=== PATIENT | female | born 1935 | race Caucasian/White ===

== ENCOUNTER → 2020-05-16 | Outpatient (CLI) | payer OTHER | LOC: US 14:30 | PROVIDERS: Internal Medicine Nephrology | DX: N18.9 Chronic kidney disease, unspecified (principal); N27.1 Small kidney, bilateral; N28.1 Cyst of kidney, acquired | CPT/HCPCS: 36415; 80053; 81001; 82043; 82570; 84156 ==

== ENCOUNTER → 2020-08-03 | Outpatient (CLI) | payer OTHER | LOC: MRI 08-01 13:30 → EXRD 08-01 15:00 | DX: M25.511 Pain in right shoulder (principal); Z78.0 Asymptomatic menopausal state; M75.101 Unspecified rotator cuff tear or rupture of right shoulder, not specified as traumatic; M85.88 Other specified disorders of bone density and structure, other site | CPT/HCPCS: 73221; 77080 ==

== ENCOUNTER → 2020-09-07 | Outpatient (CLI) | payer OTHER ==
[2020-09-08 11:12] LABS: CREATININE, URINE 50.1 mg/dL (Not Estab.)
== END ==
LOC: LAB 12:36
PROVIDERS: Internal Medicine Nephrology
DX: N18.9 Chronic kidney disease, unspecified (principal)
CPT/HCPCS: 36415; 80053; 81001; 82043; 82570; 84156

== ENCOUNTER → 2021-03-28 | Outpatient (CLI) | payer OTHER | LOC: EXRD 14:19 | DX: U07.1 COVID-19 (principal); R91.8 Other nonspecific abnormal finding of lung field | CPT/HCPCS: 71046 ==

== ENCOUNTER 2021-04-02 11:46 | Inpatient (IN) | payer OTHER ==
[~2021-04-02] VITALS: Ht 172.7 cm; Wt 61.3 kg
[2021-04-02 12:25] LABS: HEMOGLOBIN 13.1 gm/dl (12.3-15.3); RED BLOOD COUNT 4.46 M/UL (4.00-5.10); WHITE BLOOD COUNT 9.7 K/UL (4.5-11.0)
[2021-04-02 12:50] LABS: BUN/CREATININE RATIO 22 (0-10)
[2021-04-02] MEDS ORDERED: GABAPENTIN100 MG PO (16:31)
[2021-04-02] MEDS ORDERED: LISINOPRIL2.5 MG PO (16:31)
[2021-04-02] MEDS ORDERED: METOPROLOL TART25 MG PO (16:31)
[2021-04-02] MEDS ORDERED: ASPIRIN EC81 MG PO (16:32)
[2021-04-02] MEDS ORDERED: AZITHROMYCIN250 MG PO (16:34)
[2021-04-02] MEDS ORDERED: MEDROL4 MG PO (16:35)
[2021-04-03 06:26] LABS: HEMOGLOBIN 12.9 gm/dl (12.3-15.3); RED BLOOD COUNT 4.46 M/UL (4.00-5.10)
[2021-04-03 06:27] LABS: WHITE BLOOD COUNT 7.2 K/UL (4.5-11.0)
[2021-04-04 06:36] LABS: HEMOGLOBIN 12.1 gm/dl (12.3-15.3); RED BLOOD COUNT 4.22 M/UL (4.00-5.10); WHITE BLOOD COUNT 8.2 K/UL (4.5-11.0)
[2021-04-04] MEDS ORDERED: ELIQUIS2.5 MG PO (09:02)
[2021-04-04] MEDS ORDERED: PROAIR HFA8.5 GM INH (09:43)
--- NOTE | 2021-04-04 11:28 | NUR ---
patient ambulates from chair to bed with pulse ox of 95%. patient stand by assist.
--- NOTE | 2021-04-04 13:45 | NUR ---
report given to home health admitting nurse. notified son of patient d/c home.
== END 2021-04-04 14:50 | disposition home or self-care (01) | DRG 177 ==
LOC: ER1 11:46 → M/S 13:45 → CDU 13:45 → M/S 21:18
PROVIDERS: Internal Medicine; Physician Assistant; ADMIT Internal Medicine
PROC: 8E0ZXY6 Isolation (ICD-10-PCS; 2021-04-02)
PROC: B24BZZZ Ultrasonography of Heart with Aorta (ICD-10-PCS; principal; 2021-04-03)
DX: U07.1 COVID-19 (principal); J12.82 Pneumonia due to coronavirus disease 2019; I48.91 Unspecified atrial fibrillation; I12.9 Hypertensive chronic kidney disease with stage 1 through stage 4 chronic kidney disease, or unspecified chronic kidney disease; N18.30 Chronic kidney disease, stage 3 unspecified; E66.9 Obesity, unspecified; E11.22 Type 2 diabetes mellitus with diabetic chronic kidney disease; F32.A Depression, unspecified; I08.3 Combined rheumatic disorders of mitral, aortic and tricuspid valves; Z79.01 Long term (current) use of anticoagulants; Z79.82 Long term (current) use of aspirin; Z90.49 Acquired absence of other specified parts of digestive tract; Z98.51 Tubal ligation status; Z68.20 Body mass index [BMI] 20.0-20.9, adult; Z83.3 Family history of diabetes mellitus
CPT/HCPCS: ECHO; 70450; 71045; 80048; 80053; 81001; 82533; 82550; 82553; 83605; 83615; 83735; 83874; 84100; 84439; 84443; 84484; 85025; 85027; 85610; 86140; 87086; 93005; 93306; 94760; 96365; 96366; 96375; 97116-GP-CQ; 97162; 97530; 97530-GP-CQ; 99285; G0378; J0456; J0696; J1650; J1956; J2405; J7030; U0002

== ENCOUNTER → 2021-07-19 | Outpatient (CLI) | payer OTHER ==
[~2021-07-19] MED LIST: ASPIRIN EC81 MG PO; AZITHROMYCIN250 MG PO; ELIQUIS2.5 MG PO; GABAPENTIN100 MG PO; LISINOPRIL2.5 MG PO; MEDROL4 MG PO; METOPROLOL TART25 MG PO; PROAIR HFA8.5 GM INH
[2021-07-20 11:18] LABS: CREATININE, URINE 48.2 mg/dL (Not Estab.)
== END ==
LOC: LAB 12:43
PROVIDERS: Internal Medicine Nephrology
DX: N18.9 Chronic kidney disease, unspecified (principal)
CPT/HCPCS: 36415; 80053; 81001; 82043; 82570; 84156